=== PATIENT | male | born 1985 | race Caucasian/White ===

== ENCOUNTER 2019-07-20 14:24 | Emergency (ER) | payer SELFPAY ==
[~2019-07-20] VITALS: Ht 175.3 cm; Wt 70.5 kg
[~2019-07-20 14:24] MED LIST: BACLOFEN20 M1 PO; VOLTAREN75 MG PO
[2019-07-20 14:45] VITALS: BP 159/99; Ht 175.3 cm; Wt 70.5 kg
[2019-07-20] MEDS ORDERED: DICLOFENAC SODI50 MG PO (16:18)
== END 2019-07-20 16:53 | disposition home or self-care (01) ==
LOC: D.ER 14:24
DX: M47.816 Spondylosis without myelopathy or radiculopathy, lumbar region (principal)

== ENCOUNTER 2020-02-14 05:26 | Emergency (ER) | payer SELFPAY ==
[~2020-02-14] VITALS: Ht 175.3 cm; Wt 72.7 kg
[~2020-02-14 05:26] MED LIST changes: +DICLOFENAC SODI50 MG PO
[2020-02-14 05:33] VITALS: BP 138/79; Ht 175.3 cm; Wt 72.7 kg
[2020-02-14] MEDS ORDERED: STERAPRED DS 1010 MG PO (05:56)
[2020-02-14] MEDS ORDERED: CYCLOBENZAPRINE10 MG PO (05:56)
[2020-02-14] MEDS ORDERED: NAPROSYN500 MG PO (05:56)
== END 2020-02-14 06:09 | disposition home or self-care (01) ==
LOC: D.ER 05:26
DX: S39.012A Strain of muscle, fascia and tendon of lower back, initial encounter (principal); X50.0XXA Overexertion from strenuous movement or load, initial encounter; Y93.9 Activity, unspecified; Y92.9 Unspecified place or not applicable

== ENCOUNTER 2020-09-12 20:38 | Emergency (ER) | payer SELFPAY ==
[~2020-09-12] VITALS: Ht 175.3 cm; Wt 72.7 kg
[~2020-09-12 20:38] MED LIST changes: +CYCLOBENZAPRINE10 MG PO; +NAPROSYN500 MG PO; +STERAPRED DS 1010 MG PO
[2020-09-12 20:43] VITALS: BP 153/102; Ht 175.3 cm; Wt 72.7 kg
[2020-09-12] MEDS ORDERED: DICLOFENAC SODI50 MG PO ×2 (21:07→21:16)
== END 2020-09-12 21:23 | disposition home or self-care (01) ==
LOC: D.ER 20:38
DX: M25.512 Pain in left shoulder (principal)

== ENCOUNTER 2020-09-17 12:53 | Emergency (ER) | payer SELFPAY ==
[~2020-09-17] VITALS: Ht 175.3 cm; Wt 72.7 kg
[2020-09-17 12:57] VITALS: BP 152/101; Ht 175.3 cm; Wt 72.7 kg
[2020-09-17 13:40] LABS: BASOPHILS 0.4 % (0-2); EOSINOPHILS 1.2 % (0-7); HEMATOCRIT 41.9 % (42.0-54.0); HEMOGLOBIN 14.3 g/dL (13.5-17.5); IMMATURE GRANULOCYTES 0.5 % (0-5); LYMPHOCYTE ABS# 2.52 10x3/uL (1.32-3.57); LYMPHOCYTES 21.2 % (15-50); MCH 33.6 pg (26.0-34.0); MCHC 34.1 g/dL (31.0-37.0); MCV 98.4 fL (80.0-100.0); MEAN PLATELET VOLUME 9.8 fL (7.4-10.4); MONOCYTES 9.9 % (2-11); NEUTROPHIL ABS# 7.96 10x3/uL (1.78-5.38); NEUTROPHILS 66.8 % (40-80); PLATELET COUNT 267 10x3/uL (130-400); RBC 4.26 10x6/uL (4.20-6.10); RDW 14.4 % (11.5-14.5); WBC 11.9 10x3/uL (4.8-10.8)
[2020-09-17 13:47] LABS: CALC OSMOLALITY 280 mosm/kg (275-300); CALCIUM 8.9 mg/dL (8.5-10.1); CARBON DIOXIDE 30.4 mmol/L (21.0-32.0); CHLORIDE - SERUM 103 mmol/L (98-107); GLUCOSE 115 mg/dL (74-106); POTASSIUM - SERUM 3.7 mmol/L (3.5-5.1); SODIUM 140 mmol/L (136-145); UREA NITROGEN 14 mg/dL (7-18); eGFR NON AFRICAN AMERICAN 89 mL/min (90-120)
[2020-09-17 13:56] LABS: ALBUMIN 3.1 g/dL (3.4-5.0); ALKALINE PHOSPHATASE 98 U/L (30-120); ALT (SGPT) 39 U/L (10-68); BILIRUBIN - TOTAL 0.42 mg/dL (0.2-1.3); PROTEIN - SERUM 6.7 g/dL (6.4-8.2)
[2020-09-17 14:07] LABS: UDS - AMPHET POSITIVE QUAL (NEGATIVE); UDS - BARB NEGATIVE QUAL (NEGATIVE); UDS - BENZO NEGATIVE QUAL (NEGATIVE); UDS - COCAINE NEGATIVE QUAL (NEGATIVE); UDS - OPIATE NEGATIVE QUAL (NEGATIVE); UDS - PCP NEGATIVE QUAL (NEGATIVE); UDS - THC POSITIVE QUAL (NEGATIVE)
[2020-09-17 14:12] LABS: BILIRUBIN NEGATIVE (NEGATIVE); KETONE NEGATIVE (NEGATIVE); NITRITE NEGATIVE (NEGATIVE); UROBILINOGEN NORMAL mg/dL (< 2)
[2020-09-17] MEDS ORDERED: CYCLOBENZAPRINE10 MG PO (14:53)
== END 2020-09-17 15:13 | disposition home or self-care (01) ==
LOC: D.ER 12:53
PROVIDERS: Family Medicine
DX: M25.512 Pain in left shoulder (principal); G89.29 Other chronic pain; R31.9 Hematuria, unspecified

== ENCOUNTER 2020-11-06 09:03 | Emergency (ER) | payer MEDICAID ==
[~2020-11-06] VITALS: Ht 175.3 cm; Wt 72.7 kg
[2020-11-06 09:12] VITALS: BP 124/82; Ht 175.3 cm; Wt 72.7 kg
[2020-11-06] MEDS ORDERED: DICLOFENAC SODI50 MG PO (11:40)
== END 2020-11-06 12:44 | disposition home or self-care (01) ==
LOC: D.ER 09:03
DX: M51.26 Other intervertebral disc displacement, lumbar region (principal)